=== PATIENT | female | born 1975 | race Caucasian/White ===

== ENCOUNTER → 2017-03-18 | Outpatient (CLI) | payer BC ==
[~2017-03-18] MED LIST: LISINOPRIL20 MG PO; MACROBID 100 M100 MG PO; NAPROXEN250 MG PO; NORCO 5-325 TA1 EACH PO; ZOFRAN8 MG PO
== END ==
LOC: US 15:14
DX: E04.9 Nontoxic goiter, unspecified (principal); E04.1 Nontoxic single thyroid nodule
CPT/HCPCS: 76536

== ENCOUNTER → 2017-07-18 | Outpatient (CLI) | payer BC ==
[2017-07-18 09:04] LABS: HEMOGLOBIN 12.1 gm/dl (12.3-15.3); RED BLOOD COUNT 4.05 M/UL (4.00-5.10); WHITE BLOOD COUNT 5.1 K/UL (4.5-11.0)
[2017-07-18 09:20] LABS: BUN/CREATININE RATIO 24 (0-10)
== END ==
LOC: OPSV2 08:00
PROVIDERS: Obstetrics & Gynecology
DX: Z01.812 Encounter for preprocedural laboratory examination (principal); N93.8 Other specified abnormal uterine and vaginal bleeding; I10 Essential (primary) hypertension
CPT/HCPCS: 80048; 81001; 85025; 87077; 87086; 87186

== ENCOUNTER → 2020-12-04 | Outpatient (CLI) | payer BC, OTHER ==
[2020-12-04 10:34] LABS: HEMOGLOBIN 13.6 gm/dl (12.3-15.3); RED BLOOD COUNT 4.39 M/UL (4.00-5.10); WHITE BLOOD COUNT 6.4 K/UL (4.5-11.0)
[2020-12-04 11:13] LABS: BUN/CREATININE RATIO 20 (0-10)
== END ==
LOC: LAB 10:02
PROVIDERS: Internal Medicine
DX: R73.01 Impaired fasting glucose (principal); E78.5 Hyperlipidemia, unspecified; E55.9 Vitamin D deficiency, unspecified; R53.83 Other fatigue; I10 Essential (primary) hypertension
CPT/HCPCS: 36415; 80053; 80061; 82607; 83036; 84439; 84443; 85025

== ENCOUNTER → 2021-06-25 | Outpatient (CLI) | payer BC ==
[2021-06-25 10:28] LABS: HEMOGLOBIN 13.4 gm/dl (12.3-15.3); RED BLOOD COUNT 4.36 M/UL (4.00-5.10)
[2021-06-25 10:47] LABS: BUN/CREATININE RATIO 16 (0-10)
== END ==
LOC: LAB 09:12
PROVIDERS: Internal Medicine
DX: I10 Essential (primary) hypertension (principal); R73.01 Impaired fasting glucose; E78.5 Hyperlipidemia, unspecified; R53.83 Other fatigue; E55.9 Vitamin D deficiency, unspecified
CPT/HCPCS: 36415; 80053; 80061; 82607; 83036; 84439; 84443; 85025

== ENCOUNTER → 2022-01-22 | Outpatient (CLI) | payer BC ==
[2022-01-22 10:19] LABS: HEMOGLOBIN 12.7 gm/dl (12.3-15.3); RED BLOOD COUNT 4.13 M/UL (4.00-5.10); WHITE BLOOD COUNT 6.3 K/UL (4.5-11.0)
[2022-01-22 10:40] LABS: BUN/CREATININE RATIO 19 (0-10)
== END ==
LOC: LAB 09:44
PROVIDERS: Internal Medicine
DX: R53.83 Other fatigue (principal); E04.1 Nontoxic single thyroid nodule; E55.9 Vitamin D deficiency, unspecified; R73.01 Impaired fasting glucose
CPT/HCPCS: 36415; 80053; 82607; 83036; 84439; 84443; 85025

== ENCOUNTER → 2022-07-01 | Outpatient (CLI) | payer BC ==
[2022-07-01 10:50] LABS: BUN/CREATININE RATIO 18 (0-10)
== END ==
LOC: LAB 09:42
PROVIDERS: Internal Medicine
DX: R73.01 Impaired fasting glucose (principal); E55.9 Vitamin D deficiency, unspecified; I10 Essential (primary) hypertension
CPT/HCPCS: 36415; 80053; 83036